=== PATIENT | female | born 1970 | race Caucasian/White ===

== ENCOUNTER 2020-02-13 14:14 | Emergency (ER) | payer OTHER ==
[2020-02-13 16:49] LABS: Absolute Lymphocytes (CBC) 1.9 K/uL (0.7-4.9); Basophils % 0.5 % (0-1.3); Hematocrit 42.5 % (36.0-45.0); Lymphocytes % 17.4 % (15.3-44.8); RBC Red Blood Cell Count 4.81 M/uL (3.86-4.86)
[2020-02-13 17:10] LABS: ALT/SGPT 32 U/L (12-78); AST/SGOT 23 U/L (15-37); Albumin 3.9 g/dL (3.4-5.0); Alkaline Phosphatase 71 U/L (45-117); BUN Blood Urea Nitrogen 11 mg/dL (7-18); Bicarbonate 29 mmol/L (21-32); Bilirubin Direct < 0.1 mg/dL (0-0.2); Bilirubin Total 0.3 mg/dL (0.2-1.0); Glucose Level 108 mg/dL (74-106); Lipase 65 U/L (73-393); Potassium 3.9 mmol/L (3.5-5.1); Protein, Total 7.3 g/dL (6.4-8.2); Sodium Level 141 mmol/L (136-145)
[2020-02-13 17:26] LABS: Urine Blood 2+ (NEG); Urine Glucose TRACE (NEG); Urine Protein 2+ (NEG); Urine Specific Gravity 1.025 (1.005-1.030); Urine pH 5.5 (5.0-7.0)
[2020-02-13 17:37] LABS: Urine Bacteria 20-50 /HPF (<20); Urine Culture Reflex Order REFLEXED; Urine Mucus 1+ /HPF (NONE SEEN); Urine RBC 20-50 /HPF (NONE SEEN)
[2020-02-13] MEDS ORDERED: MORPHINE 4 MG/ML SYR ONE ×2 (18:04→18:57)
[2020-02-13] MEDS ORDERED: ONDANSETRON 4 MG/2 ML VIAL ONE (18:04)
[2020-02-13] MEDS ORDERED: CIPROFLOXACIN HCL 500 MG TAB ONE (18:04)
--- NOTE | 2020-02-13 18:14 | RAD REPORT ---
EXAM DESCRIPTION: CT - Stone Protocol - 02/13/2020 6:06 pm CLINICAL HISTORY: Flank pain. left flank pain COMPARISON: No comparisons TECHNIQUE: Axial images were obtained without oral or IV contrast. Lack of contrast limits solid org an and vascular assessment. The [id number]-ebpm spans the entirety of the system partially obscuring uppermost abdomen and lung bases. Coronal reformatted images were obtained and reviewed. All CT scans are performed using dose optimization technique as appropriate and may include automated exposure control or mA/KV adjustment according to patient size. FINDINGS: The lower lung olvera are clear. Imaged portions of the liver and spleen show no suspicious findings on non-contrast imaging. The panc reas and adrenal glands are normal. No pathologic lymphadenopathy in the abdomen or pelvis. Cholecyst ectomy clips. Postsurgical changes about the stomach of gastric bypass noted. 3 mm calculus is present at the left UVJ resulting mild left hydronephrosis. Additional punctate angela ceal calculi seen bilaterally. No bowel obstruction, free air, free fluid or abscess. The appendix is not identified as a discrete s tructure, however, no secondary findings of appendicitis are identified. No significant bony abnormality. IMPRESSION: 3 mm calculus at the left UVJ resulting mild left hydronephrosis. Additional punctate bilateral nephrolithiasis.
--- NOTE | 2020-02-13 18:54 | ER ---
Nurse's Notes [facility] Name: Pippa Albrecht Age: 49 yrs Sex: Female : 1970 Arrival Date: 02/13/2020 Time: 14:39 Bed 18 Private MD: Diagnosis: 3 mm Left mid ureter kidney stone Presentation: 02/12 15:35 Chief complaint: Patient states: left flank pain x 2 days, difficulty urinating. jl7 Coronavirus screen: Proceed with normal triage. Patient denies a cough. Patient denies shortness of breath or difficulty breathing. Patient denies measured and/or subjective temperature greater than 100.4F prior to today's visit. Patient denies travel on a cruise ship or to a country the [facility] currently lists as an affected area. Patient denies contact with known and/or suspected case of COVID-19. Ebola Screen: No symptoms or risks identified at this time. Initial Sepsis Screen: Does the patient meet any 2 criteria? No. Patient's initial sepsis screen is negative. Does the patient have a suspected source of infection? No. Patient's initial sepsis screen is negative. Risk Assessment: Do you want to hurt yourself or someone else? Patient reports no desire to harm self or others. Onset of symptoms was February 11, 2020. Care prior to arrival: None. 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 - Social history:: Smoking status: Patient denies any tobacco usage or history of. Screenin:41 Abuse screen: Denies threats or abuse. Denies injuries from another. Nutritional ca1 screening: No deficits noted. Tuberculosis screening: No symptoms or risk factors identified. Fall Risk IV access (20 points). Assessment: 16:41 General: Appears in no apparent distress. comfortable, Behavior is calm, cooperative, ca1 appropriate for age. Pain: Complains of pain in posterior aspect of left lateral abdomen and anterior aspect of left lateral abdomen Pain radiates to low back area Pain currently is 10 out of 10 on a pain scale. Quality of pain is described as stabbing, Pain began 2-3 days ago. Is continuous. Neuro: Level of Consciousness is awake, alert, obeys commands, Oriented to person, place, time, situation. Cardiovascular: Heart tones S1 S2 present Capillary refill < 3 seconds Patient's skin is warm and dry. Respiratory: Airway is patent Respiratory effort is even, unlabored, Respiratory pattern is regular, symmetrical, Breath sounds are clear bilaterally. GI: Abdomen is flat, non-distended, Bowel sounds present X 4 quads. Abd is soft X 4 quads Abdomen is tender to palpation in posterior aspect of left lateral abdomen and anterior aspect of left lateral abdomen Reports nausea. : Reports urgency, urinary frequency, Denies burning with urination. : Urine is cloudy. EENT: No signs and/or symptoms were reported regarding the EENT system. EENT:. Derm: Skin is intact, is healthy with good turgor, Skin is pink, warm \T\ dry. Musculoskeletal: Circulation, motion, and sensation intact. Capillary refill < 3 seconds. 17:45 Reassessment: Patient appears in no apparent distress at this time. Patient and/or ca1 family updated on plan of care and expected duration. Pain level reassessed. Patient is alert, oriented x 3, equal unlabored respirations, skin warm/dry/pink. 18:56 Reassessment: Patient appears in no apparent distress at this time. Patient and/or ca1 family updated on plan of care and expected duration. Pain level reassessed. Patient is alert, oriented x 3, equal unlabored respirations, skin warm/dry/pink. Vital Signs: 15:35 BP 159 / 89; Pulse 70; Resp 19; Temp 97; Pulse Ox 98% ; Pain 10/10; jl7 16:45 BP 141 / 89; Pulse 65; Resp 14 S; Pulse Ox 95% on R/A; ca1 18:14 BP 165 / 77; Pulse 67; Resp 18; Pulse Ox 100% ; kj1 18:56 BP 155 / 81; Pulse 68; Resp 15 S; Pulse Ox 100% on R/A; ca1 ED Course: 14:39 Patient arrived in ED. ag5 15:37 Triage completed. jl7 15:39 Arm band placed on right wrist. Patient placed in waiting room, Patient notified of jl7 wait time. 16:18 Arelis Paula, RN is Primary Nurse. ca1 16:22 Aaron Sarkar MD is Attending Physician. kdr 16:40 No provider procedures requiring assistance completed. Initial lab(s) drawn, by me, ca1 sent to lab. Inserted saline lock: 20 gauge in right antecubital area, using aseptic technique. Blood collected. 16:41 Patient has correct armband on for positive identification. Bed in low position. Call ca1 light in reach. Side rails up X 1. Pulse ox on. NIBP on. Warm blanket given. 16:43 Urine collected: clean catch specimen, cloudy. ca1 16:50 Urine Microscopic Only Sent. ca1 18:05 CT Stone Protocol In Process Unspecified. EDMS 18:53 Dung Mccann MD is Referral Physician. kdr 18:57 IV discontinued, intact, bleeding controlled, No redness/swelling at site. Pressure ca1 dressing applied. Administered Medications: 18:15 Drug: Cipro 500 mg Route: PO; ca1 18:46 Follow up: Response: No adverse reaction ca1 18:16 Drug: Zofran (Ondansetron) 4 mg Route: IVP; Site: right antecubital; ca1 18:46 Follow up: Response: No adverse reaction; Nausea is decreased ca1 18:18 Drug: morphine 4 mg {Note: rass 0.} Route: IVP; Site: right antecubital; ca1 18:46 Follow up: Response: No adverse reaction; Pain is unchanged, physician notified; RASS: ca1 Alert and Calm (0) 18:52 Drug: morphine 4 mg {Note: rass - 0.} Route: IVP; Site: right antecubital; ca1 19:04 Follow up: Response: No adverse reaction; Pain is decreased; RASS: Alert and Calm (0) ca1 Outcome: 18:54 Discharge ordered by . kdr 19:03 Discharged to home ambulatory. ca1 19:03 Condition: stable 19:03 Discharge instructions given to patient, Instructed on discharge instructions, follow up and referral plans. medication usage, Demonstrated understanding of instructions, follow-up care, medications, Prescriptions given X 3. 19:03 Patient left the ED. ca1 Signatures: Dispatcher [employer] EDAaron Rodriguez MD MD kdr Leal, Jahala, RN RN jl7 Arelis Paula RN RN ca1 Mai Sevilla ag5 Abena Silva kj1 Corrections: (The following items were deleted from the chart) 18:20 18:14 BP 105 / 61; Pulse 75bpm; Resp 18bpm; Pulse Ox 100% RA; kj1 kj1
--- NOTE | 2020-02-13 18:55 | EDPHYS ---
Physician Documentation [facility] Name: Pippa Albrecht Age: 49 yrs Sex: Female : 1970 Arrival Date: 02/13/2020 Time: 14:39 Bed 18 Private MD: ED Physician Aaron Sarkar HPI: 02/12 19:40 This 49 yrs old Female presents to ER via Ambulatory with complaints of kdr Abdominal Pain. 19:40 The patient complains of pain in the left mid back. Location: left mid back. Onset: The kdr symptoms/episode began/occurred gradually, 2 day(s) ago. Modifying factors: The symptoms are alleviated by nothing. the symptoms are aggravated by movement, palpation/percussion. Associated signs and symptoms: Pertinent positives: urinary frequency, nausea. Severity of pain: At its worst the pain was moderate severe incapacitating just prior to arrival, in the emergency department the pain has improved mildly. The patient has experienced a previous episode, last year. The patient has not recently seen a physician. 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 - Social history:: Smoking status: Patient denies any tobacco usage or history of. ROS: 19:40 Constitutional: Negative for fever, chills, and weight loss, Eyes: Negative for injury, kdr pain, redness, and discharge, Neck: Negative for injury, pain, and swelling, Cardiovascular: Negative for chest pain, palpitations, and edema, Respiratory: Negative for shortness of breath, cough, wheezing, and pleuritic chest pain, : Negative for injury, bleeding, discharge, and swelling, MS/Extremity: Negative for injury and deformity, Skin: Negative for injury, rash, and discoloration, Neuro: Negative for headache, weakness, numbness, tingling, and seizure activity. Psych: Negative for depression, anxiety, suicide ideation, homicidal ideation, and hallucinations, Allergy/Immunology: Negative for hives, rash, and allergies, Endocrine: Negative for neck swelling, polydipsia, polyuria, polyphagia, and marked weight changes, Hematologic/Lymphatic: Negative for swollen nodes, abnormal bleeding, and unusual bruising. 19:40 Abdomen/GI: Positive for abdominal pain, nausea, Negative for black/tarry stool, rectal pain, bowel incontinence. 19:40 Back: Positive for pain at rest, pain with movement, of the left mid back. Exam: 19:40 Constitutional: This is a well developed, well nourished patient who is awake, alert, kdr and in no acute distress. Head/Face: Normocephalic, atraumatic. Eyes: Pupils equal round and reactive to light, extra-ocular motions intact. Lids and lashes normal. Conjunctiva and sclera are non-icteric and not injected. Cornea within normal limits. Periorbital areas with no swelling, redness, or edema. Neck: Trachea midline, no thyromegaly or masses palpated, and no cervical lymphadenopathy. Supple, full range of motion without nuchal rigidity, or vertebral point tenderness. No Meningismus. Chest/axilla: Normal chest wall appearance and motion. Nontender with no deformity. No lesions are appreciated. Cardiovascular: Regular rate and rhythm with a normal S1 and S2. No gallops, murmurs, or rubs. Normal PMI, no JVD. No pulse deficits. Respiratory: Lungs have equal breath sounds bilaterally, clear to auscultation and percussion. No rales, rhonchi or wheezes noted. No increased work of breathing, no retractions or nasal flaring. Abdomen/GI: Soft, non-tender, with normal bowel sounds. No distension or tympany. No guarding or rebound. No evidence of tenderness throughout. Skin: Warm, dry with normal turgor. Normal color with no rashes, no lesions, and no evidence of cellulitis. MS/ Extremity: Pulses equal, no cyanosis. Neurovascular intact. Full, normal range of motion. Neuro: Awake and alert, GCS 15, oriented to person, place, time, and situation. Cranial nerves II-XII grossly intact. Motor strength 5/5 in all extremities. Sensory grossly intact. Cerebellar exam normal. Normal gait. Psych: Awake, alert, with orientation to person, place and time. Behavior, mood, and affect are within normal limits. 19:40 Back: pain, that is moderate, of the left mid back, CVA tenderness, that is mild, is noted on the left. Vital Signs: 15:35 BP 159 / 89; Pulse 70; Resp 19; Temp 97; Pulse Ox 98% ; Pain 10/10; jl7 16:45 BP 141 / 89; Pulse 65; Resp 14 S; Pulse Ox 95% on R/A; ca1 18:14 BP 165 / 77; Pulse 67; Resp 18; Pulse Ox 100% ; kj1 18:56 BP 155 / 81; Pulse 68; Resp 15 S; Pulse Ox 100% on R/A; ca1 MDM: 18:54 Patient medically screened. kdr 19:40 Data reviewed: vital signs, nurses notes, lab test result(s), radiologic studies. kdr Counseling: I had a detailed discussion with the patient and/or guardian regarding: the historical points, exam findings, and any diagnostic results supporting the discharge/admit diagnosis, lab results, radiology results, the need for outpatient follow up. 02/12 16:22 Order name: Basic Metabolic Panel; Complete Time: 17:45 kdr 02/12 16:22 Order name: CBC with Diff; Complete Time: 17:45 kdr 02/12 16:22 Order name: Hepatic Function; Complete Time: 17:45 kdr 02/12 16:22 Order name: Lipase; Complete Time: 17:45 kdr 02/12 16:45 Order name: Urine Microscopic Only; Complete Time: 17:45 ca1 02/12 17:04 Order name: Urine Dipstick--Ancillary (enter results); Complete Time: 17:45 mt 02/12 16:22 Order name: IV Saline Lock; Complete Time: 16:40 kdr 02/12 16:22 Order name: Labs collected and sent; Complete Time: 16:40 kdr 02/12 17:39 Order name: Urine Culture EDOH 02/12 17:45 Order name: CT Stone Protocol; Complete Time: 18:33 kdr 02/12 16:45 Order name: Urine Dipstick-Ancillary (obtain specimen); Complete Time: 16:45 ca1 Administered Medications: 18:15 Drug: Cipro 500 mg Route: PO; ca1 18:46 Follow up: Response: No adverse reaction ca1 18:16 Drug: Zofran (Ondansetron) 4 mg Route: IVP; Site: right antecubital; ca1 18:46 Follow up: Response: No adverse reaction; Nausea is decreased ca1 18:18 Drug: morphine 4 mg {Note: rass 0.} Route: IVP; Site: right antecubital; ca1 18:46 Follow up: Response: No adverse reaction; Pain is unchanged, physician notified; RASS: ca1 Alert and Calm (0) 18:52 Drug: morphine 4 mg {Note: rass - 0.} Route: IVP; Site: right antecubital; ca1 19:04 Follow up: Response: No adverse reaction; Pain is decreased; RASS: Alert and Calm (0) ca1 Disposition: 02/13/20 18:54 Discharged to Home. Impression: 3 mm Left mid ureter kidney stone. - Condition is Stable. - Discharge Instructions: Kidney Stones, [id number]. - Prescriptions for Tramadol 50 mg Oral Tablet - take 1 tablet by ORAL route every 8 hours as needed; 12 tablet. Flomax 0.4 mg Oral Capsule, Sust. Release 24 hr - take 1 capsule by ORAL route once daily 1/2 hour following the same meal each day; 30 capsule. Bactrim DS 800- 160 mg Oral Tablet - take 1 tablet by ORAL route every 12 hours for 3 days; 6 tablet. - Medication Reconciliation Form, Thank You Letter, Antibiotic Education, Prescription Opioid Use form. - Follow up: Private Physician; When: 2 - 3 days; Reason: If symptoms return, Further diagnostic work-up, Recheck today's complaints, Continuance of care, Re-evaluation by your physician. Follow up: Dung Mccann MD; When: 2 - 3 days; Reason: If symptoms return, Further diagnostic work-up, Recheck today's complaints, Continuance of care, Re-evaluation by your physician. - Problem is new. - Symptoms have improved. - Notes: Continue on the antibiotics given to you by your doctor prior to your arrival in the Emergency Department Signatures: Dispatcher [employer] EDAaron Rodriguez MD MD kdr Leal, Jahala, RN RN jl7 Arelis Paula RN RN ca1 Corrections: (The following items were deleted from the chart) 19:03 18:54 02/13/2020 18:54 Discharged to Home. Impression: 3 mm Left mid ureter kidney ca1 stone. Condition is Stable. Forms are Medication Reconciliation Form, Thank You Letter, Antibiotic Education, Prescription Opioid Use. Follow up: Private Physician; When: 2 - 3 days; Reason: If symptoms return, Further diagnostic work-up, Recheck today's complaints, Continuance of care, Re-evaluation by your physician. Follow up: Dung Mccann; When: 2 - 3 days; Reason: If symptoms return, Further diagnostic work-up, Recheck today's complaints, Continuance of care, Re-evaluation by your physician. Problem is new. Symptoms have improved. kdr
[2020-02-13 19:09] VITALS: TEMP 97
[2020-02-13 19:11] VITALS: O2SAT 100
[2020-02-13 19:13] VITALS: BP 155/81
== END 2020-02-13 19:03 | disposition home or self-care (01) ==
LOC: ER 14:14
DX: N20.0 Calculus of kidney (principal); Z87.442 Personal history of urinary calculi; Z98.84 Bariatric surgery status; Z88.6 Allergy status to analgesic agent; Z88.5 Allergy status to narcotic agent; Z91.048 Other nonmedicinal substance allergy status
CPT/HCPCS: 87088; 85025; 80048; 36415; 80076; 83690; 76377; 74176; 96375; 96374; 99284; J2405; 81003; 81015; 87086